=== PATIENT | male | born 1965 | race Caucasian/White ===

== ENCOUNTER → 2021-08-23 17:01 | Outpatient (CLI) | payer BC, SELFPAY ==
[2021-08-23 17:55] LABS: Absolute Lymphocyte Count 1.83 X10^3/uL (0.83-4.51); Basophil# 0.06 X10^3/uL; Basophil% 1.1 % (0-1); Eosinophil# 0.21 X10^3/uL; Eosinophils% 3.8 % (0-5); Hematocrit 44.6 % (40-54); Lymphocyte # 1.83 X10^3/ul (0.83-4.51); Lymphocyte % 32.9 % (19-41); Mean Corp Hgb Conc 33.6 g/dL (32-36); Mean Corpuscular Hgb 29.2 pg (27.0-32.0); Mean Corpuscular Volume 86.9 fL (80-94); Mean Platelet Vol. 10.8 fl (6.2-12.0); Monocyte# 0.47 X10^3/uL; Monocyte% 8.4 % (0-10); NRBC Flagged by Analyzer 0 % (0-5); Neutrophil # 2.99 X10^3/uL (2.7-7.7); Neutrophil % 53.6 % (47-70); Platelet Count 158 K/mm3 (150-450); RBC Distribution Width CV 13.3 % (11.6-14.6); RBC Distribution Width SD 42.5 fl (35.1-43.9); Red Blood Count 5.13 M/mm3 (4.6-6.2); White Blood Count 5.6 K/mm3 (4.4-11.0)
[2021-08-23 18:33] LABS: ALB/GLOB Ratio 0.9 RATIO (0.9-2.4); AST(SGOT) 25 U/L (15-37); Alanine Aminotransfer ALT/SGPT 25 U/L (16-61); Albumin, Serum 3.8 g/dL (3.2-5.0); Alkaline Phosphatase 82 U/L (45-117); Anion Gap 7 (5-15); BUN 13 mg/dL (7-18); BUN/Creat Ratio 12.5 RATIO (10-20); Calcium,Total 9.2 mg/dL (8.5-10.1); Chloride 105 mmol/L (98-107); Cholesterol 199 mg/dL (200); Creatinine, Serum 1.04 mg/dL (0.70-1.30); EST Glomerular Filtration Rate 79 mL/min (>60); Est Glom Filt Rate - Afr Amer 96 mL/min (>60); Globulin 4.3 g/dL (2.2-4.2); Glucose 80 mg/dL (74-106); High Density Lipoprotein 57 mg/dL; Potassium 3.8 mmol/L (3.5-5.1); Protein, Total 8.1 g/dL (6.4-8.2); Sodium Level 140 mmol/L (136-145); T4 Free Direct 0.85 ng/dL (0.76-1.46); Thyroid Stim Hormone (TSH) 2.79 uIU/mL (0.358-3.74); Triglycerides 143 mg/dL; Very Low Density Lipoprotein 29 mg/dL (5-40)
[2021-08-25 13:33] LABS: Thyroid Peroxidase AB 26 IU/mL (0-34)
== END ==
PROVIDERS: PCP Family Medicine; Referring Provider Family Medicine; Visit Provider Family Medicine
DX: E04.1 Nontoxic single thyroid nodule (principal); B34.9 Viral infection, unspecified; E66.01 Morbid (severe) obesity due to excess calories
CPT/HCPCS: 36415; 80053; 80061; 84439; 84443; 85025; 86376; 86769

== ENCOUNTER → 2021-08-30 09:10 | Outpatient (CLI) | payer BC, SELFPAY ==
--- NOTE | 2021-08-30 09:13 | US_ITS ---
STUDY: THYROID ULTRASOUND REASON FOR EXAM: Male, 56 years old. THYROID NODULE TECHNIQUE: Ultrasound evaluation of the thyroid was performed with real-time and static hanks-scale imaging. COMPARISON: None. FINDINGS: RIGHT LOBE: The right lobe of the thyroid gland measures 4.7 x 2.4 x 2.2 cm. There is a homogeneous echotexture. There are no demonstrated solid, cystic or complex lesions. LEFT LOBE: The left lobe of the thyroid gland measures 5.2 x 2.1 x 2.1 cm. There is a homogeneous echotexture. There is a 2 mm cyst in the left thyroid lobe. ISTHMUS: The isthmus measures 1.8 mm. US/Thyroid IMPRESSION: Normal ultrasound examination of the thyroid. Electronically Signed: Dylon Murguia MD at 2:37 EDT Tel , Service support ,
== END ==
PROVIDERS: PCP Family Medicine; Referring Provider Family Medicine; Visit Provider Family Medicine
DX: E04.1 Nontoxic single thyroid nodule (principal)
CPT/HCPCS: 76536

== ENCOUNTER → 2023-07-18 | Outpatient (CLI) | payer BC, SELFPAY ==
[2023-07-18 15:33] LABS: Absolute Neutrophil Count 3.6 X10^3/uL (2.0-7.7); Basophil# 0.06 X10^3/uL; Basophil% 0.8 % (0-1); Eosinophil# 0.22 X10^3/uL; Eosinophils% 3.1 % (0-5); Hematocrit 43.3 % (40-54); Hemoglobin 13.8 g/dL (13.0-16.5); Lymphocyte % 36.5 % (19-41); Mean Corp Hgb Conc 31.9 g/dL (32-36); Mean Corpuscular Hgb 28.8 pg (27.0-32.0); Mean Corpuscular Volume 90.2 fL (80-94); Mean Platelet Vol. 11.2 fl (6.2-12.0); Monocyte# 0.62 X10^3/uL; Monocyte% 8.7 % (0-10); NRBC Flagged by Analyzer 0 % (0-5); Neutrophil # 3.59 X10^3/uL (2.7-7.7); Neutrophil % 50.5 % (47-70); Platelet Count 142 K/mm3 (150-450); RBC Distribution Width CV 13.5 % (11.6-14.6); RBC Distribution Width SD 44.2 fl (35.1-43.9); White Blood Count 7.1 K/mm3 (4.4-11.0)
[2023-07-18 15:59] LABS: ALB/GLOB Ratio 0.9 RATIO (0.9-2.4); AST(SGOT) 29 U/L (15-37); Alanine Aminotransfer ALT/SGPT 23 U/L (16-61); Albumin, Serum 3.5 g/dL (3.2-5.0); Alkaline Phosphatase 94 U/L (45-117); Anion Gap 6 (5-15); BUN 18 mg/dL (7-18); BUN/Creat Ratio 16.8 RATIO (10-20); Calcium,Total 8.9 mg/dL (8.5-10.1); Chloride 109 mmol/L (98-107); Cholesterol 177 mg/dL (200); Creatinine, Serum 1.07 mg/dL (0.70-1.30); EST Glomerular Filtration Rate 76 mL/min (>60); Est Glom Filt Rate - Afr Amer 92 mL/min (>60); Glucose 116 mg/dL (74-106); High Density Lipoprotein 54 mg/dL; PSA,Total - Annual Screen 0.67 ng/mL (0.00-4.00); Potassium 4.1 mmol/L (3.5-5.1); Protein, Total 7.5 g/dL (6.4-8.2); Sodium Level 140 mmol/L (136-145); Triglycerides 184 mg/dL; Very Low Density Lipoprotein 37 mg/dL (5-40)
[2023-07-19 15:17] LABS: Hemoglobin A1c 5.2 % (3.8-5.6)
== END | disposition home or self-care (01) ==
PROVIDERS: PCP Family Medicine; Visit Provider Family Medicine
DX: R73.09 Other abnormal glucose (principal); E66.01 Morbid (severe) obesity due to excess calories; Z12.5 Encounter for screening for malignant neoplasm of prostate
CPT/HCPCS: 36415; 80053; 80061; 83036; 84153; 84443; 85025; G0103

== ENCOUNTER → 2023-09-10 | Outpatient (CLI) | payer BC, SELFPAY ==
--- NOTE | 2023-09-10 18:26 | CT_ITS ---
STUDY: LOW DOSE CT LUNG CANCER SCREENING REASON FOR EXAM: Male, 58 years old. history of tobacco RADIATION DOSAGE (If Supplied By Facility): CTDIvol = ( 4.02 ) mGy, DLP = ( 143.96 ) mGycm TECHNIQUE: No contrast was administered. Low dose technique was utilized (average mAS-38 and kVp 120). 1.25 mm axial source images with a slice interval of 1.25-mm were reconstructed in lung windows. 2.5 mm axial source images with a slice interval of 2.5-mm were reconstructed in lung windows. 5.0 mm axial source images with a slice interval of 5.0-mm were reconstructed in soft tissue windows. COMPARISON: None. Emphysema: Mild emphysema. 8 mm noncalcified nodule in the superior segment the right lower lobe lungs on image 88 and follow-up CT in 3 months or PET/CT is recommended. Endobronchial lesion: None Aorta: No aneurysm. CORONARY ARTERIES: Coronary artery calcification is not seen. Heart: No cardiomegaly. Pulmonary artery: Normal Mediastinal nodes: Normal Other chest and abdominal findings: Flowing paravertebral ossification in the lower thoracic spine consistent with diffuse idiopathic skeletal hyperostosis (DISH). CT/Low Dose CT Lung Screening IMPRESSION: Lung-RADS category 4A - Screening at 3 months with LDCT or evaluation with PET/CT may be used. IMPORTANT NOTES FOR USE: ACR Lung-RADS Version 1.1 Assessment Categories Release Date: 2018 Category: Coded 0-4 bases on nodule(s) with highest degree of suspicion. Negative screen is defined as categories 1 and 2; a positive screen is defined as categories 3 and 4. Category 3 and 4A nodules that are unchanged on interval CT should be coded as category 2, and individuals returned to screening in 12 months. Category 4X: Category 3 or 4 nodules with additional imaging findings that increase the suspicion of lung cancer, such as spiculation, GGN that doubles in size in 1 year, enlarged lymph notes, etc. Category Modifiers: S (significant finding unrelated to lung cancer) Electronically Signed: Colin Joe MD at 23:17 EDT ,
== END | disposition home or self-care (01) ==
PROVIDERS: PCP Family Medicine; Referring Provider Family Medicine; Visit Provider Family Medicine
DX: Z87.891 Personal history of nicotine dependence (principal)
CPT/HCPCS: 71271

== ENCOUNTER → 2023-12-06 | Outpatient (CLI) | payer BC, SELFPAY ==
--- NOTE | 2023-12-06 08:06 | CT_ITS ---
EXAM: CT CHEST WITH INTRAVENOUS CONTRAST CLINICAL INDICATION: lung nodule TECHNIQUE: Helically acquired images were obtained of the chest with intravenous contrast. This CT exam was performed using one or more of the following dose reduction techniques: automated exposure control, adjustment of the mA and/or kV according to patient size, and/or use of iterative reconstruction technique. CONTRAST: IV 100mL Isovue-370 RADIATION DOSE: CTDIvol = 18.38 mGy, DLP = 793.76 mGy-cm COMPARISON: 09/10/2023. FINDINGS: LUNGS AND PLEURAL SPACES: 10 mm noncalcified and indeterminate pulmonary nodule in the superior segment of the right lower lobe is unchanged. No pleural effusion or thickening. No pneumothorax. HEART: Unremarkable. Heart size is normal. Normal cardiac size. No coronary artery calcifications are plaques. Normal pericardium. MEDIASTINUM: Unremarkable. No mediastinal or hilar adenopathy. Esophagus is unremarkable. No hiatal hernia. THYROID: Unremarkable. No thyroid lesions. BONES/JOINTS: Unremarkable. No suspicious lytic or blastic abnormality. VASCULATURE: No thoracic aortic aneurysm or dissection. CT/Chest WITH Contrast IMPRESSION: 1. 10 mm noncalcified and indeterminate pulmonary nodule in the superior segment of the right lower lobe is unchanged when compared to 09/10/2023. For high-risk patients (smoking history or other known risk factors) recommend follow-up chest CT at 12-18 months. If unchanged, no further follow-up. 2. No acute cardiopulmonary pathology. Electronically Signed: Curtis Guerrier MD at 8:53 EST ,
--- OUTSIDE RECORDS SUMMARY | 2023-12-06 08:11 | XMS RPT_ITS | CCD ---
Author Name Unknown Address [address] [place] [address] Organization [facility] Care Team Providers Care Outsole Leveler Name Role Phone WERNER ARRIETA Unavailable Unavailable JANUARY GOLDMAN JR. Unavailable Unavailable No, Physician Primary Care Provider Unavailmagda e CHRISSY MAY Attending Unavailable NO, PHYSICIAN Primary Care Unavailable CHRISSY MAY Admitting Unavailable CHRISSY MAY Referring Unavailable NO, PHYSICIAN Primary Care Unavailable CHRISSY MAY Attending Unavailable NO, PHYSICIAN Primary Care Unavailable No, Physician Primary Care Provider Unavailabl e Medications Completed/Discontinued Medications Medication Drug Class(es) Dates Sig (Normalized) Sig (Original) 1 ml triamcinolone acetonide 40 mg/ml injection (3 sources) Corticosteroid Start: 07-04-2020 End: 07-04-2020 triamcinolone acetonide (KENALOG-40) injection 40 mg Problems Problem Classification Problem Date Documented Da te Episodic/Chronic Osteoarthritis (1 source) Primary gonarthrosis, bilateral; Translations: [Primary osteoarthritis of both knees] Chronic Osteoarthritis (2 sources) Osteoarthritis of right knee joint; Translations: [Primary osteoarthritis of right knee] Results Test Name Value Interpretation Reference Range Facil ity Vital Signs Date Time Vital Sign Value Performing Clinician Leopoldo baron 11-03-2019 08:130500 BMI (Body Mass Index) 42.04 kg/m2 [facility] 11-03-2019 08:130500 Body weight 140.62 kg [facility] 11-03-2019 08:130500 Height 182.9 cm [facility] Encounters Encounter Date Encounter Type Care Provider Facility Start: 01-18-2021 End: 01-18-2021 Orders Only Claudia Albert Work Phone: [facility] Start: 07-04-2020 End: 07-04-2020 Patient encounter procedure CHRISSY CHESTER MAY [facility] Start: 07-04-2020 End: 07-04-2020 Clinical Support Chrissy May Work Phone: [facility] Procedures Date Procedure Procedure Detail Performing Clinician Start: 07-04-2020 Arthrocentesis Chrissy May Work Phone: Start: 11-03-2019 Arthrocentesis Chrissy May Work Phone: Start: 03-14-2018 Colonoscopy Claudia delgado Plan of Treatment Date Care Activity Detail Author Start: 03-14-2028 Screening for malign ant neoplasm of colon [facility] Start: 07-12-2020 Influenza vaccination given Se quential Influenza Vaccine (#1) [facility] Start: 07-12-2019 Influenza vaccination given SE QUENTIAL INFLUENZA VACCINE (#1) [facility] Start: 01-27-2019 History and physical examination, annual for health maintenance Wellness Visit [facility] Start: 2017 Administration of he rpes zoster vaccine Zoster Vaccines (1 of 2) [facility] Start: 2017 Screening for malign ant neoplasm of colon [facility] Start: 1985 Hepatitis C antibody , confirmatory test Hepatitis C Screening [facility] Start: 1983 COVID-19 Vaccine (1 of 2) COVID-19 V accine (1 of 2) [facility] Start: 1982 HIV screening HIV Screening [facility] Start: 1979 Adolescent depressio n screening assessment Depression Screening (PHQ9) [facility] Start: 1970 History and physical examination, annual for health maintenance Wellness Visit [facility] Start: 1967 Depression screening using PHQ-9 (Patient Health Questionnaire 9) score DEPRESSION SCREENING (PHQ9) [facility] Start: 1967 Prostate specific an tigen measurement PSA Level [facility] Start: 1967 Screening for malign ant neoplasm of colon Colorectal Cancer Screening: Colonoscopy [facility] Start: 1967 [facility] Payers Date Payer Category Payer Unknown [id number] 2017 Unknown ANTHEM BCBS OUT OF STATE [facility] xxxxxxxxxxxxxxx 2017-Present xxxxxxxxxxxxxxx [id number] 2017 Unknown ANTHHEENA BCBS OUT OF STATE [facility] [id number] 2017-Present [id number] 1967 Unknown [id number] 1967 Unknown [id number] Social History Date Type Detail Facility Start: 11-07-2019 End: 07-04-2020 Tobacco smoking status MSIS Former smoker [facility] Start: 11-07-2019 End: 07-04-2020 Alcohol intake Current drinker of alcohol (finding) [facility] Sex Assigned At Not on file [facility] Start: 07-04-2020 Tobacco use and exposure Never used [facility] Exposure to SARS-CoV -2 (event) Not sure [facility] Summary Purpose Family History No Family History Records FoundNo Family History Records Found Advance Directives Documents on File Type Date 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 is a he with bilateral knee pain Chief Complaint Patient presents with Right Knee - Pain . HPI: Knee Pain: Patient complains of bilateral knee pain. He states that the right knee is much worse than the left knee. Both knees have been bothering him for years but the right knee began to hurtmuch more about 4-5 weeks ago. He doesn't remember a specific injury to the knee. He does work on concrete [place] for 8-10 hours every day. He does wear a knee brace on the right knee which he states does help a little bit. He also uses Ibuprofen along with tylenol which sometimes helps with the pain. He states that the right knee feels unstable at times and he does feel it catch and click at times. It has never locked up on him. PMH: No Known Allergies No current outpatient medications on file. The patient's past medical history, surgical history, social history, family history, medications and allergies were reviewed with the patient today and are available in the chart for further review. ROS: Review of Systems Constitutional: Negative for activity change and fatigue. HENT: Negative for congestion, hearing loss and trouble swallowing. Eyes: Negative for visual disturbance. Respiratory: Negative for chest tightness and shortness of breath. Cardiovascular: Negative for chest pain and palpitations. Gastrointestinal: Negative for abdominal pain, diarrhea, nausea and vomiting. Endocrine: Negative for polydipsia, polyphagia and polyuria. Genitourinary: Negative for decreased urine volume, difficulty urinating and hematuria. Musculoskeletal: Positive for arthralgias. Negative for joint swelling and myalgias. Skin: Negative for color change, rash and wound. Allergic/Immunologic: Negative for immunocompromised state. Neurological: Negative for dizziness, weakness, light-headedness and numbness. Hematological: Does not bruise/bleed easily. Psychiatric/Behavioral: Negative for confusion and sleep disturbance. The patient is not nervous/anxious. PE: Physical Exam Constitutional: He is oriented to person, place, and time. He appears well- developed and well-nourished. HENT: Head: Normocephalic. Eyes: Pupils are equal, round, and reactive to light. Neck: Normal range of motion. Neck supple. Cardiovascular: Normal rate and regular rhythm. Pulmonary/Chest: Effort normal and breath sounds normal. Abdominal: Soft. Bowel sounds are normal. Musculoskeletal: General: Tenderness and edema present. Right knee: He exhibits decreased range of motion and swelling. Tenderness found. Medial joint lineand lateral joint line tenderness noted. Left knee: Tenderness found. Medial joint line and lateral joint line tenderness noted. Neurological: He is alert and oriented to person, place, and time. Skin: Skin is warm and dry. ORTHO: Right Knee Exam Tenderness The patient is experiencing tenderness in the lateral joint line and medial joint line. Range of Motion Extension: abnormal Flexion: normal Tests Wendie: Medial - positive Lateral - positive Varus: negative Valgus: negative Cathy: Anterior - negative Drawer: Anterior - negative Posterior - negative Other Erythema: absent Scars: absent Sensation: normal Pulse: present Swelling: mild Left Knee Exam Tenderness The patient is experiencing tenderness in the lateral joint line and medial joint line. Range of Motion The patient has normal left knee ROM. Tests Wendie: Medial - negative Lateral - negative Varus: negative Valgus: negative Cathy: Anterior - negative Drawer: Anterior - negative Posterior - negative Other Erythema: absent Scars: absent Sensation: normal Pulse: present Swelling: none Imaging: Left knee osteoarthritis, moderate within the medial femorotibial compartment. Mild in thepatellofemoral compartment. Right knee osteoarthritis, mild in the medial femorotibial and patellofemoral compartments Assessment/Plan: After examination and reviewing of patient x-ray images, I offered the patient cortisone injections for both knees which he has verbalized he wants to try for pain and inflammation. I did explain to him that he could have these injections every 3 months as needed. I encouraged him to continue wearing the brace for extra support and also encouraged him to get one for the left kneeas well. If there is no improvement after 2 weeks after the injections, I will have the patient go for outpatient physical therapy. I did inform him that if there was no improvement after physical therapy then we would move forward with a MRI for further diagnostic evaluation. The patient verbalized understanding and is in agreement with the treatment plan. Diagnosis: Problem List Items Addressed This Visit None Visit Diagnoses Primary osteoarthritis of right knee - Primary Relevant Orders LG Jt Injection/Arthrocentesis: R knee LG Jt Injection/Arthrocentesis: L knee Follow Up: No follow-ups on file. Chrissy May CNP * Chrissy May CNP - 11/03/2019 10:16 AM EST Associated Order(s): LG Jt Injection/Arthrocentesis: R knee; LG Jt Injection/Arthrocentesis: L knee Post-Procedure Diagnose(s): Primary osteoarthritis of right knee LG Jt Injection/Arthrocentesis: R knee Performed by: Chrissy May CNP Authorized by: Chrissy May CNP CPT 97848 - Large Joint Arthrocentesis: Consent given by: Patient Time out: Immediately prior to the procedure a time out was called Physician or proceduralist has discussed critical or nonroutine steps, procedure duration and anticipated blood loss: Yes Supporting Documentation: Indications: Pain, joint swelling and diagnostic evaluation Procedure Details: Location: Knee Site: R knee Prep: patient was prepped and draped in usual sterile fashion Needle size: 22 G Approach: Anterolateral Medications: 40 mg triamcinolone acetonide 40 mg/mL Anesthetic used: Lidocaine 1% Anesthetic amount (mL): 2 Patient tolerance: Patient tolerated the procedure well with no immediate complications LG Jt Injection/Arthrocentesis: L knee Performed by: Chrissy May CNP Authorized by: Chrissy May CNP CPT 48892 - Large Joint Arthrocentesis: Consent given by: Patient Time out: Immediately prior to the procedure a time out was called Supporting Documentation: Indications: Pain and diagnostic evaluation Procedure Details: Location: Knee Site: L knee Prep: patient was prepped and draped in usual sterile fashion Needle size: 22 G Approach: Anterolateral Medications: 40 mg triamcinolone acetonide 40 mg/mL Anesthetic used: Lidocaine 1% Anesthetic amount (mL): 2 Patient tolerance: Patient tolerated the procedure well with no immediate complications documented in this encounter* Chrissy May CNP - 07/04/2020 4:16 PM EDT Associated Order(s): LG Jt Injection/Arthrocentesis: R knee Post-Procedure Diagnose(s): Primary osteoarthritis of right knee LG Jt Injection/Arthrocentesis: R knee Performed by: Chrissy May CNP Authorized by: Chrissy May CNP CPT 71573 - Large Joint Arthrocentesis: Consent given by: Patient Time out: Immediately prior to the procedure a time out was called Physician or proceduralist has discussed critical or nonroutine steps, procedure duration and anticipated blood loss: Yes Supporting Documentation: Indications: Pain, joint swelling and diagnostic evaluation Procedure Details: Location: Knee Site: R knee Prep: patient was prepped and draped in usual sterile fashion Needle size: 22 G Approach: Anterolateral Medications: 40 mg triamcinolone acetonide 40 mg/mL Anesthetic used: Lidocaine 1% Anesthetic amount (mL): 2 Patient tolerance: Patient tolerated the procedure well with no immediate complications * Chrissy May CNP - 07/04/2020 4:13 PM EDT [facility] [address] [facility] [address] [facility] [id number] Chief Complaint Patient presents with Follow-up rt knee Timbo Tirado returns to the office today for an injection to his right knee. His last injection was in Oct. The left knee is doing great but the right one started hurting a couple of weeks agoand he would like to try another injection since the first one worked so well. The patient's past medical history, surgical history, social history, family history, medications and allergies were reviewed with the patient today and are available in the chart for further review. No Known Allergies No current outpatient medications on file. No past medical history on file. Past Surgical History: Procedure Laterality Date BACK SURGERY Social History Socioeconomic History Marital status: Spouse name: Not on file Number of children: Not on file Years of education: Not on file Highest education level: Not on file Occupational History Not on file Social Needs Financial resource strain: Not on file Food insecurity Worry: Not on file Inability: Not on file Transportation needs Medical: Not on file Non-medical: Not on file Tobacco Use Smoking status: Former Smoker Smokeless tobacco: Never Used Substance and Sexual Activity Alcohol use: Yes Drug use: Not on file Sexual activity: Not on file Lifestyle Physical activity Days per week: Not on file Minutes per session: Not on file Stress: Not on file Relationships Social connections Talks on phone: Not on file Gets together: Not on file Attends uatsdin service: Not on file Active member of club or organization: Not on file Attends meetings of clubs or organizations: Not on file Relationship status: Not on file Other Topics Concern Not on file Social History Narrative Not on file ROS: Review of Systems Constitutional: Negative for activity change and fatigue. HENT: Negative for congestion, hearing loss and trouble swallowing. Eyes: Negative for visual disturbance. Respiratory: Negative for chest tightness and shortness of breath. Cardiovascular: Negative for chest pain and palpitations. Gastrointestinal: Negative for abdominal pain, diarrhea, nausea and vomiting. Endocrine: Negative for polydipsia, polyphagia and polyuria. Genitourinary: Negative for decreased urine volume, difficulty urinating and hematuria. Musculoskeletal: Positive for arthralgias. Negative for joint swelling and myalgias. Skin: Negative for color change, rash and wound. Allergic/Immunologic: Negative for immunocompromised state. Neurological: Negative for dizziness, weakness, light-headedness and numbness. Hematological: Does not bruise/bleed easily. Psychiatric/Behavioral: Negative for confusion and sleep disturbance. The patient is not nervous/anxious. PE: Physical Exam Constitutional: He is oriented to person, place, and time. He appears well- developed and well-nourished. HENT: Head: Normocephalic. Eyes: Pupils are equal, round, and reactive to light. Neck: Normal range of motion. Neck supple. Cardiovascular: Normal rate and regular rhythm. Pulmonary/Chest: Effort normal and breath sounds normal. Abdominal: Soft. Bowel sounds are normal. Musculoskeletal: Normal range of motion. General: Tenderness present. Neurological: He is alert and oriented to person, place, and time. Skin: Skin is warm and dry. Imaging: No new imaging, reviewed from 11/03/2019 Assessment/Plan: After exam and discussion, I injected the right knee per patient request without complications. He tolerated this well. I will be happy to see him back as needed. documented in this encounter Assessments Diagnosis Primary osteoarthritis of right knee Primary osteoarthritis of both knees Diagnosis Primary osteoarthritis of right knee- Primary Additional Source Comments (unrecognized sect ion and content) No Status Records FoundNo Status Records Found INFORMATION SOURCE (unrecogn ized section and content) DATE CREATED AUTHOR AUTHOR'S ORGANIZ ATION 07/04/2020 [facility] Reason for Visit (unrecogniz ed section and content) Reason Comments Follow-up rt knee FOR RECORDS PERTAINING TO PATIENTS WHO ARE OR HAVE BEEN ENROLLED IN A CHEMICAL DEPENDENCY/SUBSTANCEABUSE PROGRAM, SOME INFORMATION MAY BE OMITTED. This clinical summary was aggregated from multiple sources. Caution should be exercised in using it in the provision of clinical care. This summary normalizes information from multiple sources, and as a consequence, information in this document may materially change the coding, format and clinical context of patient data. In addition, data may be omitted in some cases. CLINICAL DECISIONS SHOULD BE BASED ON THE PRIMARY CLINICAL RECORDS. [facility]. provides no warranty or guarantee of the accuracy or completeness of information in this document.
== END | disposition home or self-care (01) ==
PROVIDERS: PCP Family Medicine; Referring Provider Family Medicine; Visit Provider Family Medicine
DX: R91.1 Solitary pulmonary nodule (principal)
CPT/HCPCS: 71260; Q9967

== ENCOUNTER → 2024-07-21 | Outpatient (CLI) | payer BC, SELFPAY ==
[2024-07-21 12:35] LABS: ALB/GLOB Ratio 0.9 RATIO (0.9-2.4); AST(SGOT) 27 U/L (15-37); Alanine Aminotransfer ALT/SGPT 19 U/L (16-61); Albumin, Serum 3.7 g/dL (3.2-5.0); Alkaline Phosphatase 88 U/L (45-117); Anion Gap 3 (5-15); BUN 17 mg/dL (7-18); BUN/Creat Ratio 16.3 RATIO (10-20); Calcium,Total 9.5 mg/dL (8.5-10.1); Chloride 108 mmol/L (98-107); Creatinine, Serum 1.04 mg/dL (0.70-1.30); EST Glomerular Filtration Rate 78 mL/min (>60); Est Glom Filt Rate - Afr Amer 95 mL/min (>60); Globulin 3.9 g/dL (2.2-4.2); Glucose 104 mg/dL (74-106); PSA,Total - Annual Screen 0.69 ng/mL (0.00-4.00); Potassium 4.2 mmol/L (3.5-5.1); Protein, Total 7.6 g/dL (6.4-8.2); Sodium Level 138 mmol/L (136-145)
[2024-07-21 12:36] LABS: Hemoglobin A1c 5.5 % (3.8-5.6)
== END | disposition home or self-care (01) ==
LOC: MFPLAB 11:02
PROVIDERS: PCP Family Medicine; Visit Provider Family Medicine
DX: Z12.5 Encounter for screening for malignant neoplasm of prostate (principal); R73.09 Other abnormal glucose; B35.1 Tinea unguium
CPT/HCPCS: 36415; 80053; 83036; 84153; G0103

== ENCOUNTER → 2024-09-07 | Outpatient (CLI) | payer BC, SELFPAY ==
[2024-09-07 12:25] LABS: ALB/GLOB Ratio 1.1 RATIO (0.9-2.4); AST(SGOT) 22 U/L (15-37); Alanine Aminotransfer ALT/SGPT 22 U/L (16-61); Albumin, Serum 3.8 g/dL (3.2-5.0); Alkaline Phosphatase 84 U/L (45-117); Anion Gap 6 (5-15); BUN 19 mg/dL (7-18); BUN/Creat Ratio 17.4 RATIO (10-20); Calcium,Total 8.9 mg/dL (8.5-10.1); Chloride 107 mmol/L (98-107); Creatinine, Serum 1.09 mg/dL (0.70-1.30); EST Glomerular Filtration Rate 74 mL/min (>60); Est Glom Filt Rate - Afr Amer 90 mL/min (>60); Globulin 3.5 g/dL (2.2-4.2); Glucose 107 mg/dL (74-106); Potassium 4.1 mmol/L (3.5-5.1); Protein, Total 7.3 g/dL (6.4-8.2); Sodium Level 139 mmol/L (136-145)
== END | disposition home or self-care (01) ==
LOC: MFPLAB 08:03
PROVIDERS: PCP Family Medicine; Visit Provider Family Medicine
DX: B35.1 Tinea unguium (principal)
CPT/HCPCS: 36415; 80053

== ENCOUNTER → 2024-11-27 | Outpatient (CLI) | payer BC, SELFPAY ==
--- NOTE | 2024-11-27 18:46 | CT_ITS ---
STUDY: CT CHEST WITHOUT CONTRAST REASON FOR EXAM: Male, 59 years old. nodule, smoker, due in november 2024 RADIATION DOSAGE (If Supplied By Facility): CTDIvol = ( 20.15 ) mGy, DLP = ( 704.86 ) mGycm TECHNIQUE: CT examination performed from the base of the neck to the upper abdomen. Sagittal and coronal reformatted images performed. Sagittal and coronal MIP images provided. Individualized dose optimization techniques were used for this CT. COMPARISON: 12/06/2023 and 09/10/2023. FINDINGS: 1.1 x 1 x 0.6 cm pulmonary nodule in the superior segment of the right lower lobe, stable in size since August 2023. The lungs are normal. There is no demonstrated pleural abnormality. Normal heart and pericardium. There are no calcifications of the coronary arteries. Normal mediastinum. Normal hilar regions. Normal unenhanced pulmonary arteries. Normal aorta arch and descending thoracic aorta. Normal osseous structures. There is no demonstrated abnormality of the visualized upper abdomen. CT/Chest without Contrast IMPRESSION: 1.1 cm pulmonary nodule in the superior segment of the right lower lobe, stable in size since August 2023. No new pulmonary nodules. ASSESSMENT CATEGORY: LUNG-RADS 2: Benign Appearance or Behavior. Continue annual screening with LDCT in 12 months. Electronically Signed: Juan Smith MD at 9:58 EST ,
== END | disposition home or self-care (01) ==
LOC: CT 18:43
PROVIDERS: PCP Family Medicine; Referring Provider Family Medicine; Visit Provider Family Medicine
DX: R91.1 Solitary pulmonary nodule (principal); F17.200 Nicotine dependence, unspecified, uncomplicated
CPT/HCPCS: 71250